=== PATIENT | male | born 1955 | race Caucasian/White ===

== ENCOUNTER 2016-10-08 18:14 | Emergency (ER) | payer SELFPAY ==
[2016-10-08] MEDS ORDERED: oxyCODONE TAB* 5 MG TAB PO PRN (21:31)
[2016-10-08] MEDS ORDERED: oxyCODONE/Acetamin 5/325 MG* TAB PO PRN (21:32)
[2016-10-08] MEDS ORDERED: oxyCODONE/Acetamin 10/325(NF) TAB PO PRN (21:32)
[2016-10-09 00:33] VITALS: BP 133/79
--- NOTE | 2016-10-09 04:53 | ED ---
Yara Braga Rebecca, scribed for PaulLuis on 10/08/16 at 2132 . Upper Extremity Pain - HPI Summary HPI Summary: Pt is a 61 y/o M who presents to ED c/o R shoulder and upper arm pain s/p fall. Pt fell down stairs this morning at approximately 0600 and the pain is currently moderate, ranked 5/10. Sx aggravated by movement, alleviated by nothing. Denies any CP and rib pain. - History of Current Complaint Chief Complaint: EDExtremityUpper Stated Complaint: FALL Time Seen by Provider: 10/08/16 21:10 Hx Obtained From: Patient Mechanism Of Injury: Fall From Height Of: - Down stairs Onset/Duration: Still Present Severity Currently: Moderate - 5/10 Pain Location: Shoulder - Right, Arm - Right upper arm Aggravating Factor(s): Movement Alleviating Factor(s): Nothing Associated Signs & Symptoms: Positive: Negative. Negative: Chest Pain - Allergies/Home Medications Allergies/Adverse Reactions: Allergies Allergy/AdvReac Type Severity Reaction Status Date / Time No Known Allergies Allergy Verified 10/08/16 18:24 PMH/Surg Hx/FS Hx/Imm Hx Respiratory History: Reports: Hx Asthma, Hx Pneumonia GI History: Reports: Hx Diverticulosis Sensory History: Reports: Hx Contacts or Glasses Opthamlomology History: Reports: Hx Contacts or Glasses Infectious Disease History: Denies: Traveled Outside the [place] in Last 30 Days - Family History Known Family History: Positive: Other - Esophageal CA - Social History Alcohol Use: Daily Alcohol Amount: 6 pack/day Substance Use Type: Reports: None Smoking Status (MU): Never Smoked Tobacco Review of Systems Negative: Chest Pain Positive: Arthralgia - Right shoulder and right upper arm pain s/p fall; NEGATIVE: rib pain All Other Systems Reviewed And Are Negative: Yes Physical Exam - Summary Physical Exam Summary: Appearance: Well appearing, no pain distress Skin: warm, dry, reflects adequate perfusion Head/face: normal Eyes: EOMI, KAL ENT: normal Neck: supple, nontender Respiratory: CTA, breath sounds present Cardiovascular: RRR, pulses symmetrical Abdomen: nontender, soft Bowel: present Musculoskeletal: strength intact, tenderness in the R shoulder and R upper arm, restricted ROM of the RUE with no neurovascular deficit Neuro: normal, sensory motor intact, A&Ox3 Triage Information Reviewed: Yes Vital Signs On Initial Exam: Initial Vitals Temp Pulse Resp BP Pulse Ox 98.3 F 85 16 157/90 95 10/08/16 18:24 10/08/16 18:24 10/08/16 18:24 10/08/16 18:24 10/08/16 18:24 Vital Signs Reviewed: Yes Diagnostics - Vital Signs Vital Signs Temp Pulse Resp BP Pulse Ox 10/08/16 18:24 98.3 F 85 16 157/90 95 - Laboratory Lab Statement: Any lab studies that have been ordered have been reviewed, and results considered in the medical decision making process. - Radiology R Humerus XR Xray Interpretation: Positive (See Comments) - Questionable humeral head fracture. Radiology Interpretation Completed By: ED Physician R Shoulder XR Xray Interpretation: Positive (See Comments) - Questionable humeral head fracture. Radiology Interpretation Completed By: ED Physician - CT Upper Extremity CT CT Interpretation: Positive (See Comments) - Mild glenohumeral joint osteoarthritis and moderate acromioclavicular joint osteoarthritis. Small joint effusion with small intra-articular body. Questinable mild calcified tendinitis. Subacromial/subdeltoid bursitis. Consider followup MRI. CT Interpretation Completed By: Radiologist Re-Evaluation - Re-Evaluation First Eval Re-Evaluation Time: 00:12 Comment: Discussed results and D/C plan. Course/Dx - Course Assessment/Plan: Pt is a 61 y/o M who presents to ED c/o R shoulder and upper arm pain s/p fall. Pt fell down stairs this morning at approximately 0600 and the pain is currently moderate, ranked 5/10. Sx aggravated by movement, alleviated by nothing. Denies any CP and rib pain. L shoulder and humerus XR reveals questionable humeral head fracture, as read by ED physician. Upper extremity CT reveals "Mild glenohumeral joint osteoarthritis and moderate acromioclavicular joint osteoarthritis. Small joint effusion with small intra- articular body. Questinable mild calcified tendinitis. Subacromial/subdeltoid bursitis." In the ED course, pt received Roxycodone and Percocet 5/325. He will be D/C to home with Dx of shoulder pain and bursitis, Rx for Motrin and a follow up with his PCP. He understands and agrees. Elevated BP noted and advised to f/u with PCP. - Diagnoses Provider Diagnoses: Shoulder pain, Bursitis Discharge - Discharge Plan Condition: Stable Disposition: HOME Prescriptions: Ibuprofen TAB* [Motrin TAB* 600 MG] 600 mg PO Q8H PRN #21 tab MDD 3 PRN Reason: Pain Patient Education Materials: Shoulder Bursitis (ED), Shoulder Pain (ED) Referrals: Ignacio Coronado MD [Primary Care Provider] - 3 Days The documentation as recorded by the Yara wang Rebecca accurately reflects the service I personally performed and the decisions made by Paul coello Emmanuel.
--- NOTE | 2016-10-09 07:28 | RAD ---
INDICATION: Right shoulder injury. TECHNIQUE: 4 views of the right shoulder were obtained. FINDINGS: The bones are in normal alignment. No fracture is seen. There is a small calcification adjacent to the superolateral aspect of the humeral head. There is moderate osteoarthritic change in the acromioclavicular joint and mild osteoarthritic change in the glenohumeral joint. IMPRESSION: 1. NO EVIDENCE FOR FRACTURE. 2. FINDINGS SUGGESTIVE OF CALCIFIC TENDINITIS. 3. MGCD-US-UDOERILS OSTEOARTHRITIC CHANGE.
--- NOTE | 2016-10-09 07:29 | RAD ---
INDICATION: Right humerus injury. TECHNIQUE: 2 views of the right humerus were obtained. FINDINGS: The bones are in normal alignment. No fracture is seen. IMPRESSION: NO EVIDENCE FOR FRACTURE.
--- NOTE | 2016-10-09 07:42 | RAD ---
INDICATION: Trauma, right shoulder pain. COMPARISON: Comparison is made with prior x-ray study of the right shoulder of the same date. TECHNIQUE: Contiguous axial sections were obtained of the right shoulder. Images were reconstructed in the sagittal and coronal planes. FINDINGS: The bones are in normal alignment. No fracture is seen. There appears to be a joint effusion in the lateral humeral joint. There is a calcific density present anterior to the glenoid process of the scapula measuring 6 x 3 mm in size possibly representing a loose body. There is moderate osteoarthritic change in the acromioclavicular joint and mild to moderate osteoarthritic change in the glenohumeral joint. There is a small calcification adjacent to the superolateral aspect of the humeral head suggestive of calcific tendinitis. IMPRESSION: 1. NO EVIDENCE FOR FRACTURE. 2. MILD TO MODERATE OSTEOARTHRITIC CHANGE. 3. POSSIBLE MILD CALCIFIC TENDINITIS. 4. SMALL JOINT EFFUSION WITHIN THE GLENOHUMERAL JOINT AND POSSIBLE INTRA-ARTICULAR LOOSE BODY.
== END 2016-10-09 00:32 | disposition home or self-care (01) ==
LOC: ED 18:14
DX: M79.601 Pain in right arm (principal); M25.511 Pain in right shoulder; M71.9 Bursopathy, unspecified
CPT/HCPCS: 99282; A9270-GY